=== PATIENT | female | born 1930 | race Caucasian/White ===

== ENCOUNTER → 2016-05-01 | Outpatient (CLI) | payer MEDICARE, BC ==
[~2016-05-01] MED LIST: ALTACE DPS10 MG PO; ASA CHILDREN'S81 MG PO; B-12 INJ1000 MCG/M IM; BENADRYL-DPS25 MG PO; CEPACOL SORE T1 EAC1 PO; COMPAZINE10 MG PO; DELTASONE DPS5 MG PO; DULCOLAX-DPS BOW5 MG PO; DULCOLAX-DPS10 MG PR; FLEXERIL-DPS10 MG PO; FOLVITE-DPS1 MG PO; LIPITOR DPS20 MG PO; LIPITOR20 MG PO; MAALOX DPS30 ML PO; METOPROLOL TART25 MG PO; MILK OF MAGNESI10 ML PO; OXY IR DPS5 MG PO; PEPCID DPS20 MG PO; PREDNISONE5 MG PO; SENOKOT S1 TAB PO; SURFAK240 MG PO; TOPROL XL DPS25 MG PO; TUMS DPS500 MG PO; TYLENOL DPS325 MG PO; ULTRAM DPS50 MG PO; VESICARE5 MG PO; VITAMIN D31000 UNIT PO; XARELTO10 MG PO; ZOFRAN4 MG PO
== END | disposition home or self-care (01) ==
LOC: RAD.S 07:46
DX: M25.562 Pain in left knee (principal); Z96.652 Presence of left artificial knee joint